=== PATIENT | male | born 1965 | race Caucasian/White ===

== ENCOUNTER 2018-09-22 11:02 | Emergency (ER) | payer SELFPAY ==
--- NOTE | 2018-09-22 12:20 | EKG REPORT ---
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
[2018-09-22 13:07] LABS: ABSOLUTE LYMPHOCYTES (AUTO) 1.6 10^3/uL (0.5-4.7); ABSOLUTE NEUT (AUTO) 7.1 10^3/uL (1.7-8.2); BASOPHILS % (AUTO) 0.4 % (0-2); EOSINOPHILS % (AUTO) 0.5 % (0-6); HEMOGLOBIN 19.2 g/dL (13.5-17.0); LYMPHOCYTES % (AUTO) 16.4 % (13-45); MEAN CORPUSCULAR HEMOGLOBIN 30.4 pg (27.0-33.4); MEAN CORPUSCULAR HGB CONC 33.5 g/dL (32.0-36.0); MEAN CORPUSCULAR VOLUME 91 fl (80-97); PLATELET COUNT 233 10^3/uL (150-450); RED BLOOD COUNT 6.31 10^6/uL (4.35-5.55); RED CELL DISTRIBUTION WIDTH 15.5 % (11.5-14.0); SEGMENTED NEUTROPHILS % (AUTO) 72.7 % (42-78); TOTAL CELLS COUNTED % (AUTO) 100 %; WHITE BLOOD COUNT 9.8 10^3/uL (4.0-10.5)
[2018-09-22 13:09] LABS: HEMATOCRIT 57.2 % (37.9-51.0)
[2018-09-22 13:22] LABS: ALANINE AMINOTRANSFERASE 15 U/L (21-72); ALBUMIN 3.7 g/dL (3.5-5.0); ALKALINE PHOSPHATASE 91 U/L (38-126); ANION GAP 7 (5-19); ASPARTATE AMINO TRANSFERASE 23 U/L (17-59); BILIRUBIN,DIRECT 0.4 mg/dL (0.0-0.4); BILIRUBIN,TOTAL 0.6 mg/dL (0.2-1.3); BLOOD UREA NITROGEN 13 mg/dL (7-20); C-REACTIVE PROTEIN 25.5 mg/L (<10.0); CALCIUM 9.3 mg/dL (8.4-10.2); CARBON DIOXIDE 33 mmol/L (22-30); CHLORIDE 100 mmol/L (98-107); CREATINE KINASE 29 U/L (55-170); GLUCOSE 109 mg/dL (75-110); POTASSIUM 4.7 mmol/L (3.6-5.0); SODIUM 139.5 mmol/L (137-145); TOTAL PROTEIN 7.6 g/dL (6.3-8.2)
[2018-09-22 13:31] LABS: TROPONIN I < 0.012 ng/mL
[2018-09-22 13:57] LABS: APPEARANCE,URINE CLEAR; BILIRUBIN,URINE NEGATIVE (NEGATIVE); COLOR,URINE YELLOW; GLUCOSE, URINE NEGATIVE (NEGATIVE); KETONES,URINE NEGATIVE (NEGATIVE); LEUKOCYTE ESTERASE,URINE NEGATIVE (NEGATIVE); NITRITE,URINE NEGATIVE (NEGATIVE); PROTEIN,URINE 100 mg/dL (NEGATIVE); URINE SPECIFIC GRAVITY 1.013
[2018-09-22 13:58] LABS: ERYTHROCYTE SEDIMENTATION RATE 13 mm/hr (0-20)
--- NOTE | 2018-09-22 15:30 | RADIOLOGY REPORT (SQ) ---
EXAM DESCRIPTION: CT LUMBAR SPINE WITHOUT COMPLETED DATE/TIME: 09/22/2018 3:19 pm REASON FOR STUDY: Lumbar back pain, unable to walk COMPARISON: None. TECHNIQUE: Axial images acquired through the lumbar spine without intravenous contrast. Images revi ewed with lung, soft tissue and bone windows. Reconstructed coronal and sagittal MPR images reviewed . All images stored on PACS. All CT scanners at this facility use dose modulation, iterative reconstruction, and/or weight based d osing when appropriate to reduce radiation dose to as low as reasonably achievable (ALARA). [facility]: Dose Right [facility]: CareDose [facility]: Dose Right [facility]: Teradose 4D [facility]: TM RADIATION DOSE: mGy. LIMITATIONS: None. FINDINGS: SEGMENTATION: Normal. No transitional anatomy. ALIGNMENT: Normal. VERTEBRAL BODIES: No fractures. No dislocation. No acute findings. DISCS: There is annular disc bulging at L4-L5 with mild central stenosis. There is bilateral foramin al narrowing. PEDICLES, TRANSVERSE PROCESSES: No fractures. No dislocation. No acute findings. FACETS, POSTERIOR ELEMENTS: No fractures. No dislocation. No spinal stenosis. HARDWARE: None in the spine. VISUALIZED RIBS: No fractures. SOFT TISSUES: No inflammatory changes. No focal fluid collections. OTHER: No other significant finding. IMPRESSION: Annular disc bulging at L4-L5 with central canal narrowing and bilateral foraminal steno sis. No acute findings in the lumbar spine. TECHNICAL DOCUMENTATION: JOB ID: [id number] Quality ID # [id number]: Final reports with documentation of one or more dose reduction techniques (e.g., Au tomated exposure control, adjustment of the mA and/or kV according to patient size, use of iterative reconstruction technique) 2010 [employer]- All Rights Reserved Reading location - IP/workstation name: [email or web address]
[2018-09-22] MEDS ORDERED: KETOROLAC TROMETHAMINE INJ/PF 30 MG/1 ML SDV IV ONE (16:03)
[2018-09-22] MEDS ORDERED: DOXYCYCLINE HYCLATE 100 MG TABLET PO ONE (16:11)
[2018-09-22 16:36] VITALS: BP 158/89
--- NOTE | 2018-09-26 08:53 | ER Document Report ---
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 Patient states approximately 3 days ago he had a "boil under the skin" that "popped" on its own. He states he proceeded to squeeze the boil to an excess and believes he popped the sac the cyst was in. He states the drainage from the sac traveled down into his lower back and is contributing to his pain. Patient states he had identical pain at the age of 22 and was admitted to the hospital where he had fluid drained from his knee and he was diagnosed with Ahsan's syndrome. He states the admission was subsequent to popping a ganglion cyst 3 days prior, fur ther stating he popped the cyst by slamming his wrist against a wall. He declines having an I&D. This 53-year-old male patient comes emergency room for severe pain in his low back preventing him to walk. He did ride his motor scooter to the emergency room, but had to call for help and a wheelchair to bring him in when he got to the parking lot. He did not have a backup plan in case he had to stop and get off his scooter on the way to the hospital. He reports the pain got severe this morning. He thinks it is related to a small abscess on his right flank region that he popped about 3 days ago. The patient states the primary problem is he has severe pain in his lumbar back when he tries to stand up, there is not an inability to stand and walk due to motor or sensory problems, it is just painful to do so. He is convinced that abscess is the source of his low back pain because when he was 22 years old, he slammed a ganglion cyst against the wall and ended up with a swollen knee that was diagnosed as Ahsan's syndrome. The patient is morbidly obese weighing approximately 400 pounds. He states he has lost 60 pounds in the last year by careful diet portion control. - Related Data Allergies/Adverse Reactions: No Known Allergies Allergy (Unverified 09/22/18 11:03) Past Medical History - General Information source: Patient - Social History Smoking Status: Current Every Day Smoker Cigarette use (# per day): Yes - 1 PPD Chew tobacco use (# tins/day): No Smoking Education Provided: No Family History: Reviewed & Not Pertinent Review of Systems - Review of Systems EENT: No symptoms reported Cardiovascular: No symptoms reported Respiratory: No symptoms reported Gastrointestinal: No symptoms reported Genitourinary: No symptoms reported Male Genitourinary: No symptoms reported Musculoskeletal: See HPI, Back pain Skin: See HPI Hematologic/Lymphatic: No symptoms reported Neurological/Psychological: No symptoms reported -: Yes All other systems reviewed and negative Physical Exam - Vital signs Vitals: Temp Pulse Resp BP Pulse Ox 98.7 F 88 26 H 175/91 H 86 L 09/22/18 11:20 09/22/18 11:20 09/22/18 11:20 09/22/18 11:20 09/22/18 11:20 - Notes Notes: GENERAL: Alert, interacts well. No acute distress. HEAD: Normocephalic, atraumatic. EYES: Pupils equal, round, and reactive to light. Extraocular movements intact. ENT: Oral mucosa moist, tongue midline. NECK: Full range of motion. Supple. Trachea midline. LUNGS: Clear to auscultation bilaterally, no wheezes, rales, or rhonchi. No respiratory distress. HEART: Regular rate and rhythm. No murmurs, gallops, or rubs. ABDOMEN: Soft, morbidly obese. Non-distended. Bowel sounds present in all 4 quadrants. EXTREMITIES: Moves all 4 extremities spontaneously. There is a palpable mass in the left anterior lateral ankle subcutaneous space. Patient reports this is a piece of metal that came off a log splitting wedge while he was splitting wood many years ago. BACK: There is some tenderness to palpate the mid lumbar spine region. NEUROLOGICAL: Alert and oriented x3. Normal speech. The patient has sensory intact to his lower extremities and normal motor function. PSYCH: Normal affect, normal mood. SKIN: Warm, dry. Right posterior lateral back, deep within skin folds, contains an abscess with 3 cm of surrounding induration and erythema. There is purulent discharge from the abscess. Course - Re-evaluation Re-evalutation: 09/22/18 15:58 This 53-year-old morbidly obese male patient has a subcutaneous abscess in the right lateral flank region which he declines incision and drainage. His lumbar back pain is related to weightbearing without radicular symptoms. He falls asleep while I am talking to him, his pulse oximeter reading is dropped off considerably when he is asleep. He does admit that people will get mad at him for falling asleep while they are talking to him. At the same time he states he could get in a big [employer] truck and drive all the way to [place] because he would be getting stimulated while driving. Several times told the patient that he needs to get a primary care provider, and deal with his sleep apnea and narcolepsy type symptoms. He also should start donating blood or have therapeutic phlebotomy due to his hemoglobin greater than 19. At this time I told the patient that muscle relaxers could be sedating and that would be dangerous for him. So with strong pain medication. I do believe he may benefit from having a walker to help him get around at this time. 09/22/18 16:51 I have advised the patient that it is not safe for him to be driving in his present condition, and that he should get a ride home. - Vital Signs Vital signs: Temp Pulse Resp BP Pulse Ox 98.7 F 88 27 H 158/89 H 94 09/22/18 11:20 09/22/18 11:20 09/22/18 16:00 09/22/18 15:01 09/22/18 16:00 - Laboratory Result Diagrams: 09/22/18 12:45 09/22/18 12:45 Laboratory results interpreted by me: 09/22/18 09/22/18 09/22/18 12:45 12:45 13:00 RBC 6.31 H Hgb 19.2 H Hct 57.2 H RDW 15.5 H Carbon Dioxide 33 H ALT 15 L Creatine Kinase 29 L C-Reactive Protein 25.5 H Urine Protein 100 H Urine Urobilinogen 2.0 H - Diagnostic Test Radiology reviewed: Image reviewed, Reports reviewed - CT scan of the lumbar spine shows annular disc bulging at L4-5 with mild central stenosis. There is bilateral foraminal narrowing. There are no inflammatory changes seen. There are no focal fluid collection seen. There is no spinal stenosis. 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 Most commonly the pain is due to straining of the muscles and ligaments in the low back. Usual treatment includes: (1) Rest on a firm surface. Avoid lying on your stomach. (2) Ice pack the painful area. After a few days, gentle heat may be used intermittently to relax the area, or ice packs can be continued. (3) Medication may be needed -- muscle relaxers and antiinflammatory medicines are commonly used. (4) As the back improves, exercises are prescribed to strengthen the back and abdominal muscles. Your doctor will advise you on the proper care for your back at each stage in your recovery. You may be better in a few days -- or healing may take several weeks. If new symptoms of a "herniated disc" (radiation of pain, numbness, or tingling down the back of the leg or weakness in the leg) occur, you should be re-examined. Further testing may be necessary. Abscess You have an abscess (boil). This a pus-forming infection, usually due to staph. Some boils may be left to drain on their own, but most require lancing. From the time the tender lump first appears, it may be three or four days before the abscess is ready to nishi. Local heat and rest help at this stage of treatment. An antibiotic may prevent spread of the infection. Once the abscess is opened, packing may be placed into it. This is done so pus is not sealed inside by premature closure of the cavity. The packing will be removed at your follow-up visit or you may be advised to remove it yourself at home. Sometimes this packing must be replaced a few times during healing. The wound will heal with surprisingly little scar. Depending on the size and location of an abscess, healing can take one to four weeks. You may shower and wash the area around the incision site two or three times a day. Antibiotics may be prescribed, but are usually not necessary after an abscess has been drained. If you develop fever, chilling, worsening pain, or increasing swelling in the area, call the doctor or return immediately. Your evaluation today does not show a clear explanation for your low back pain. Your evaluation does show several issues that are of concern: (1) polycythemia--an excessive number of red blood cells which can lead to slu dging and reduced blood flow through your small blood vessels. This could place you at risk for heart attack or stroke, as we discussed earlier. (2) narcolepsy--you fall asleep even while sitting up trying to talk to someone. (3) sleep apnea--your breathing frequently decreases and your oxygen levels fall dangerously low when you fall asleep. This is probably the reason you have the polycythemia, as we discussed earlier. (4) high blood pressure--you should see a local medical doctor and get started on treatment for your elevated blood pressure. (5) subcutaneous abscess in your right flank region--you decided you did not want this abscess incised and drained, so you will be provided with antibiotics. Start taking the antibiotic as prescribed. Take ibuprofen for your low back pain. Get the walker that is prescribed to help you get around if taking ibuprofen does not reduce your pain adequately. Follow-up with a local medical doctor on Tuesday or Tuesday to review all of the above listed concerns. RETURN TO THE EMERGENCY ROOM IF ANY NEW OR WORSENING SYMPTOMS. Prescriptions: Doxycycline Hyclate 100 mg PO BID #14 capsule Walker [Folding Walker] 1 each MC ASDIR PRN #1 each PRN Reason: Scribe Attestation: 09/22/18 14:03 I personally performed the services described in the documentation, reviewed and edited the documentation which was dictated to the scribe in my presence, and it accurately records my words and actions. I personally performed the services described in the documentation, reviewed and edited the documentation which was dictated to the scribe in my presence, and it accurately records my words and actions.
== END 2018-09-22 16:45 | disposition home or self-care (01) ==
LOC: ER 11:02
DX: M54.5 Low back pain (principal); D75.1 Secondary polycythemia; E66.01 Morbid (severe) obesity due to excess calories; L02.212 Cutaneous abscess of back [any part, except buttock and flank]; G47.429 Narcolepsy in conditions classified elsewhere without cataplexy; G47.30 Sleep apnea, unspecified; I10 Essential (primary) hypertension; M54.9 Dorsalgia, unspecified; G89.29 Other chronic pain; M02.30 Reiter's disease, unspecified site; F17.210 Nicotine dependence, cigarettes, uncomplicated
CPT/HCPCS: 93005; 99284; 96374; 36415; 87040; 87070; 87205; 82553; 82550; 85025; 85652; 87075; 86140; 87077; 80053; 81001; 84484; 83605; 72131; 93010; J1885

== ENCOUNTER 2018-10-10 11:01 | Emergency (ER) | payer OTHER ==
[2018-10-10] MEDS ORDERED: ONDANSETRON HCL INJ/PF 4 MG/2 ML SDV IV ONE (12:13)
[2018-10-10] MEDS ORDERED: MORPHINE SULFATE 10 MG/ML INJ IV ONE (12:13)
--- NOTE | 2018-10-10 12:13 | ER Document Report ---
ED Medical Screen (RME) - General Chief Complaint: Abnormal Lab Results Stated Complaint: BACK PAIN Time Seen by Provider: 10/10/18 12:05 [facility]] - Follow up as needed Mode of Arrival: Wheelchair Information source: Patient, Dr. Office Notes: 53-year-old male presents after blood work this morning showed a potassium of 6.0. Patient is under the care of community care in clinic. He does report an increase in potassium intake and states that he eats bananas and avocados regularly. Patient has no other physical complaints except for back pain for which she was seen for earlier this month. I have greeted and performed a rapid initial assessment of this patient. A comprehensive ED assessment and evaluation of the patient, analysis of test results and completion of medical decision making process we will be contacted by additional ED providers. PHYSICAL EXAMINATION: Vital signs reviewed GENERAL: Well-appearing, well-nourished and in no acute distress. LUNGS: No respiratory distress Musculoskeletal: Normal range of motion NEUROLOGICAL: Normal speech, normal gait. PSYCH: Normal mood, normal affect. SKIN: Warm, Dry, normal turgor, no rashes or lesions noted. TRAVEL OUTSIDE OF THE [place] IN LAST 30 DAYS: No - HPI Onset: This morning Quality of pain: Throbbing Severity: Moderate Associated Symptoms: Body/muscle aches, Cough (nonproductive). denies: Diarrhea, Headache, Nausea, Shortness of breath Exacerbated by: Movement Relieved by: Denies Similar symptoms previously: Yes Recently seen / treated by doctor: Yes - Related Data Smoking: Cigarettes Frequency of alcohol use: None Drug Abuse: None Allergies/Adverse Reactions: No Known Allergies Allergy (Unverified 09/22/18 11:03) Past Medical History - Social History Chew tobacco use (# tins/day): No Frequency of alcohol use: None Drug Abuse: None Renal/ Medical History: Denies: Hx Peritoneal Dialysis Physical Exam - Vital signs Vitals: Temp Pulse Resp BP Pulse Ox 98.3 F 102 H 20 152/93 H 97 10/10/18 11:31 10/10/18 11:31 10/10/18 11:31 10/10/18 11:31 10/10/18 11:31 Course - Vital Signs Vital signs: Temp Pulse Resp BP Pulse Ox 98.3 F 102 H 20 152/93 H 97 10/10/18 11:31 10/10/18 11:31 10/10/18 11:31 10/10/18 11:31 10/10/18 11:31 Doctor's Discharge - Discharge Referrals: [facility] [Primary Care Provider] - Follow up as needed
--- NOTE | 2018-10-10 13:04 | EKG REPORT ---
SEVERITY:- ABNORMAL ECG - SINUS TACHYCARDIA PROBABLE LEFT ATRIAL ABNORMALITY RIGHT BUNDLE BRANCH BLOCK AND LAFB. ANTEROLATERAL INFARCT, AGE UNDETERMINED. : Confirmed by: Cabrera Pastrana MD 10-Oct-2018 13:03:41
[2018-10-10 13:13] LABS: MEAN CORPUSCULAR HEMOGLOBIN 30.5 pg (27.0-33.4); MEAN CORPUSCULAR HGB CONC 33.6 g/dL (32.0-36.0); MEAN CORPUSCULAR VOLUME 91 fl (80-97); PLATELET COUNT 258 10^3/uL (150-450); WHITE BLOOD COUNT 11.4 10^3/uL (4.0-10.5)
[2018-10-10 13:31] LABS: ALANINE AMINOTRANSFERASE 35 U/L (21-72); ALBUMIN 4.1 g/dL (3.5-5.0); ALKALINE PHOSPHATASE 100 U/L (38-126); ANION GAP 6 (5-19); ASPARTATE AMINO TRANSFERASE 27 U/L (17-59); BILIRUBIN,DIRECT 0.2 mg/dL (0.0-0.4); BILIRUBIN,TOTAL 0.6 mg/dL (0.2-1.3); BLOOD UREA NITROGEN 20 mg/dL (7-20); CALCIUM 10.1 mg/dL (8.4-10.2); CARBON DIOXIDE 34 mmol/L (22-30); CHLORIDE 99 mmol/L (98-107); GLUCOSE 108 mg/dL (75-110); POTASSIUM 5.1 mmol/L (3.6-5.0); TOTAL PROTEIN 8.1 g/dL (6.3-8.2)
[2018-10-10] MEDS ORDERED: NORMAL SALINE 1000 ML 1,000 ML IV ONE ×2 (13:36→16:03)
[2018-10-10 13:38] LABS: HEMATOCRIT 61.6 % (37.9-51.0); HEMOGLOBIN 20.7 g/dL (13.5-17.0)
[2018-10-10 13:51] LABS: ABSOLUTE LYMPHOCYTES# (MANUAL) 1.8 10^3/uL (0.5-4.7); ABSOLUTE MONOCYTES # (MANUAL) 0.9 10^3/uL (0.1-1.4); ABSOLUTE NEUTROPHILS# (MANUAL) 8.4 10^3/uL (1.7-8.2); BASOPHILS % (MANUAL) 0 % (0-2); EOSINOPHILS % (MANUAL) 2 % (0-6); LYMPHOCYTES % (MANUAL) 16 % (13-45); MONOCYTES % (MANUAL) 8 % (3-13); SEGMENTED NEUTROPHILS % (MAN) 74 % (42-78); TOTAL CELLS COUNTED 100
[2018-10-10 13:52] LABS: ANISOCYTOSIS SLIGHT; PLATELET COMMENT ADEQUATE
[2018-10-10] MEDS ORDERED: DEXAMETHASONE SOD PHOS INJ 10 MG/1 ML VIAL IV ONE (16:03)
--- NOTE | 2018-10-10 16:48 | RADIOLOGY REPORT (SQ) ---
EXAM DESCRIPTION: CHEST 2 VIEWS COMPLETED DATE/TIME: 10/10/2018 4:38 pm REASON FOR STUDY: intermittent hypoxia COMPARISON: None. EXAM PARAMETERS: NUMBER OF VIEWS: two views TECHNIQUE: Digital Frontal and Lateral radiographic views of the chest acquired. RADIATION DOSE: NA LIMITATIONS: none FINDINGS: LUNGS AND PLEURA: No opacities, masses or pneumothorax. No pleural effusion. MEDIASTINUM AND HILAR STRUCTURES: No masses or contour abnormalities. HEART AND VASCULAR STRUCTURES: Heart normal size. No evidence for failure. BONES: No acute findings. HARDWARE: None in the chest. OTHER: No other significant finding. IMPRESSION: NO ACUTE RADIOGRAPHIC FINDING IN THE CHEST. TECHNICAL DOCUMENTATION: JOB ID: [id number] [employer]- All Rights Reserved Reading location - IP/workstation name: [email or web address]
[2018-10-10 18:08] VITALS: BP 123/77
--- NOTE | 2018-10-10 18:15 | ER Document Report ---
ED General - General Chief Complaint: Abnormal Lab Results Stated Complaint: BACK PAIN Time Seen by Provider: 10/10/18 12:05 Primary Care Provider: SAMI GOMEZ [NO LOCAL MD] - Follow up as needed Mode of Arrival: Wheelchair TRAVEL OUTSIDE OF THE [place] IN LAST 30 DAYS: No - HPI Notes: Patient presents to the emergency department for evaluation of the best of his physician. Evidently he had routine labs done today and was told his potassium was high. The patient states he eats a lot of potassium containing foods. He states he is primarily concerned because of his back pain. He has back pain that radiates down his right leg. He denies any bowel or bladder incontinence. No saddle anesthesia. No focal numbness or weakness. He reports his pain at a 10 out of 10 and states it is "unbearable." - Related Data Allergies/Adverse Reactions: No Known Allergies Allergy (Unverified 09/22/18 11:03) Past Medical History - General Information source: Patient, Office - Social History Smoking Status: Current Every Day Smoker Chew tobacco use (# tins/day): No Frequency of alcohol use: None Drug Abuse: None Family History: Reviewed & Not Pertinent Patient has suicidal ideation: No Patient has homicidal ideation: No Renal/ Medical History: Denies: Hx Peritoneal Dialysis Review of Systems - Review of Systems Constitutional: No symptoms reported EENT: No symptoms reported Cardiovascular: No symptoms reported Respiratory: No symptoms reported Gastrointestinal: No symptoms reported Musculoskeletal: See HPI Skin: No symptoms reported Neurological/Psychological: No symptoms reported Physical Exam - Vital signs Vitals: Temp Pulse Resp BP Pulse Ox 98.3 F 102 H 20 152/93 H 97 10/10/18 11:31 10/10/18 11:31 10/10/18 11:31 10/10/18 11:31 10/10/18 11:31 - Notes Notes: Patient is morbidly obese. No apparent distress. Lying left lateral recumbent position. Vital signs reviewed, please refer to chart. Patient is normocephalic, atraumatic. Pupils equal round, reactive to light. Neck is supple without meningismus. Heart is regular rate and rhythm. Lungs are clear to auscultation bilaterally. Abdomen is soft, nontender, normoactive bowel sounds throughout. Extremities without cyanosis, clubbing. Peripheral pulses are equal. Skin is warm and dry. Patient is awake, alert, neurological exam is nonfocal. In addition the spine is no midline tenderness or step-off. There is paraspinal musculature tenderness throughout the lumbar spine. Unable to perform strength testing of bilateral lower extremity secondary to pain but sensation is intact. Patellar and Achilles reflexes are mildly diminished but symmetrical. Course - Re-evaluation Re-evalutation: 10/10/18 18:09 Patient presents to the emergency department for evaluation. He was originally sent because he was hyperkalemic. His laboratory investigations revealed a recheck potassium of only 5.1. I do not believe any further inventions were indicated beyond IV fluids. His hemoglobin is high as well. During the course of his stay did become intermittently hypoxic. This is when he was nearly asleep. I discussed this with the patient. He denies any lung disease but he has an extensive smoking history. He is also morbidly obese. He states he has a sleep study ordered in 2 weeks. We discussed the risks associated with obstructive sleep apnea and he voiced understanding to this. He was treated here with pain medication and Decadron. I will sentiment with steroids for his back pain. He has an appointment with the doctor tomorrow. He is to return to the emergency department with worsening or new concerning symptoms of any sort. - Vital Signs Vital signs: Temp Pulse Resp BP Pulse Ox 98.3 F 102 H 10 L 139/74 H 88 L 10/10/18 11:31 10/10/18 11:31 10/10/18 16:01 10/10/18 16:01 10/10/18 16:01 - Laboratory Result Diagrams: 10/10/18 12:45 10/10/18 12:45 Laboratory results interpreted by me: 10/10/18 10/10/18 12:45 12:45 WBC 11.4 H RBC 6.80 H Hgb 20.7 H* Hct 61.6 H* RDW 15.0 H Abs Neuts (Manual) 8.4 H Potassium 5.1 H Carbon Dioxide 34 H Discharge - Discharge Clinical Impression: Hyperkalemia, Low back pain Instructions: Low Back Pain ([facility]) Additional Instructions: Follow-up with your doctor tomorrow as discussed. Avoid high potassium foods. You need to be further evaluated for obstructive sleep apnea with a sleep study as soon as possible. Take all of the prednisone as directed until gone. Return to the emergency department with worsening or new concerning symptoms of any sort. Forms: Smoking Cessation Education Referrals: [facility] [NO LOCAL MD] - Follow up as needed
[2018-10-11 10:31] LABS: PATH REVIEW PATHOLOGIST REVIEWED
== END 2018-10-10 18:42 | disposition home or self-care (01) ==
LOC: ER 11:01
DX: E87.5 Hyperkalemia (principal); M54.5 Low back pain; F17.200 Nicotine dependence, unspecified, uncomplicated
CPT/HCPCS: 93005; 99285; 36415; 85025; 80053; 71046; 93010; J2270; J2405; J7030; J1100

== ENCOUNTER → 2018-10-10 | Outpatient (CLI) | payer OTHER ==
[2018-10-10 08:27] LABS: ABSOLUTE BASOPHILS # (AUTO) 0.1 10^3/uL (0.0-0.2); ABSOLUTE EOSINOPHILS # (AUTO) 0.1 10^3/uL (0.0-0.6); ABSOLUTE LYMPHOCYTES (AUTO) 2.2 10^3/uL (0.5-4.7); ABSOLUTE MONOCYTES (AUTO) 0.9 10^3/uL (0.1-1.4); BASOPHILS % (AUTO) 0.8 % (0-2); EOSINOPHILS % (AUTO) 1.2 % (0-6); LYMPHOCYTES % (AUTO) 19.7 % (13-45); MEAN CORPUSCULAR HGB CONC 33.4 g/dL (32.0-36.0); MEAN CORPUSCULAR VOLUME 90 fl (80-97); MONOCYTES % (AUTO) 7.6 % (3-13); PLATELET COUNT 266 10^3/uL (150-450); SEGMENTED NEUTROPHILS % (AUTO) 70.7 % (42-78); TOTAL CELLS COUNTED % (AUTO) 100 %; WHITE BLOOD COUNT 11.3 10^3/uL (4.0-10.5)
[2018-10-10 08:46] LABS: ALANINE AMINOTRANSFERASE 26 U/L (21-72); ALBUMIN 4.1 g/dL (3.5-5.0); ALKALINE PHOSPHATASE 100 U/L (38-126); ANION GAP 9 (5-19); ASPARTATE AMINO TRANSFERASE 25 U/L (17-59); BILIRUBIN,DIRECT 0.4 mg/dL (0.0-0.4); BILIRUBIN,TOTAL 0.7 mg/dL (0.2-1.3); BLOOD UREA NITROGEN 19 mg/dL (7-20); CALCIUM 9.7 mg/dL (8.4-10.2); CARBON DIOXIDE 33 mmol/L (22-30); CHLORIDE 98 mmol/L (98-107); CHOLESTEROL 271.96 mg/dL (0-200); GLUCOSE 101 mg/dL (75-110); SODIUM 139.9 mmol/L (137-145); TOTAL PROTEIN 8.2 g/dL (6.3-8.2); TRIGLYCERIDES 233 mg/dL (<150)
[2018-10-10 08:52] LABS: RED BLOOD COUNT 7.07 10^6/uL (4.35-5.55)
[2018-10-10 08:57] LABS: DIRECT LDL 190 mg/dL (<100); VLDL CHOLESTEROL 46.6 mg/dL (10-31)
[2018-10-10 09:01] LABS: HEMOGLOBIN 21.2 g/dL (13.5-17.0)
[2018-10-10 09:02] LABS: HEMATOCRIT 63.5 % (37.9-51.0)
== END ==
LOC: OD 07:48
DX: Z00.00 Encounter for general adult medical examination without abnormal findings (principal)
CPT/HCPCS: 36415; 80053; 80061; 83036; 85025

== ENCOUNTER 2019-01-23 09:32 | Day surgery (SDC) | payer OTHER ==
[2019-01-17 11:27] LABS: HEMATOCRIT 54.8 % (37.9-51.0); HEMOGLOBIN 18.5 g/dL (13.5-17.0); MEAN CORPUSCULAR HEMOGLOBIN 31.1 pg (27.0-33.4); MEAN CORPUSCULAR HGB CONC 33.7 g/dL (32.0-36.0); MEAN CORPUSCULAR VOLUME 92 fl (80-97); PLATELET COUNT 232 10^3/uL (150-450); RED BLOOD COUNT 5.95 10^6/uL (4.35-5.55); RED CELL DISTRIBUTION WIDTH 15.9 % (11.5-14.0); WHITE BLOOD COUNT 11.7 10^3/uL (4.0-10.5)
[2019-01-17 11:53] LABS: ANION GAP 9 (5-19); BLOOD UREA NITROGEN 14 mg/dL (7-20); CALCIUM 9.6 mg/dL (8.4-10.2); CARBON DIOXIDE 32 mmol/L (22-30); CHLORIDE 99 mmol/L (98-107); GLUCOSE 104 mg/dL (75-110); POTASSIUM 5.2 mmol/L (3.6-5.0); SODIUM 140.4 mmol/L (137-145)
--- NOTE | 2019-01-17 22:13 | EKG REPORT ---
SEVERITY:- ABNORMAL ECG - SINUS RHYTHM RBBB AND LAFB : Confirmed by: Martha Alves MD 17-Jan-2019 22:12:23
[~2019-01-23 09:32] MED LIST: BUPIVACAINE HCL 0.25 % INJ/PF (2.5 MG/1 ML) 30 ML VIAL ONE; CEFAZOLIN 1 GM/D5W RTU 1 GM/50 ML RTUPB IV ONE; CEFAZOLIN 1 GM/D5W RTU 1 GM/50 ML RTUPB IV PRN; LACTATED RINGERS 1000 ML IV PRN; LIDOCAINE 0.5% INJ-PF (5 MG/ML) 50 ML SDV ONE; LIDOCAINE 0.5% INJ-PF (5 MG/ML) 50 ML SDV SUBCUT PRN
[2019-01-23] MEDS ORDERED: SILVER SULFADIAZINE 1% CREAM 25 GM ONE (09:43)
[2019-01-23] MEDS ORDERED: BACITRACIN INJ 50,000 UNIT VIAL ONE (09:44)
[2019-01-23] MEDS ORDERED: COLLAGENASE CLOSTRIDIUM HIST. OINT 30 GM ONE (09:44)
[2019-01-23] MEDS ORDERED: MIDAZOLAM 2 MG/2 ML INJ ONE ×2 (10:39→11:23)
[2019-01-23] MEDS ORDERED: FENTANYL CITRATE INJ/PF 100 MCG/2 ML AMPUL ONE (11:23)
[2019-01-23] MEDS ORDERED: ONDANSETRON HCL INJ/PF 4 MG/2 ML SDV ONE (11:23)
[2019-01-23] MEDS ORDERED: PROPOFOL INJ 200 MG/20 ML VIAL IV ONE (11:24)
--- NOTE | 2019-01-23 13:26 | Discharge Summary ---
Discharge Summary (SDC) - Discharge Final Diagnosis: Multiple subcutaneous masses. probable sleep apnea Morbid obesity Date of Surgery: 01/23/19 Discharge Date: 01/23/19 Condition: Fair Treatment or Instructions: Discharge home [after recovery per ASU criteria]. Diet , as tolerated, when fully awake advance as tolerated. Activities within moderation encouraged. Follow up in my office by appointment in about [1 week]. Call for appointment. Leave wounds [covered], [keep clean and dry, until office visit in 1 week]. Hold of on school/work [until evaluation in office]. Meds per med rec.Keflex. May shower [in 48 hrs], [try to keep operated area as dry as possible]. Prescriptions: Cephalexin Monohydrate [Keflex 500 mg Capsule] 500 mg PO QID #20 capsule Referrals: RUT WYNN MD [Primary Care Provider] - Respiratory Treatments at Home: Deep Breathing/Coughing Discharge Activity: Activity As Tolerated Report the Following to Your Physician Immediately: Shortness of Breath
--- NOTE | 2019-01-23 13:35 | Operative Report ---
Operative Report DATE OF SURGERY: 01/23/19 PREOPERATIVE DIAGNOSIS: Multiple subcutaneous masses. probable sleep apnea. M orbid obesity POSTOPERATIVE DIAGNOSIS: Multiple subcutaneous masses. probable sleep apnea. Morbid obesity OPERATION: Excision of multiple subcutaneous masses. SURGEON: MAGDALENO VAZQUEZ DRUG ROOM OPERATOR: None. ANESTHESIA: LMAC TISSUE REMOVED OR ALTERED: Subcutaneous mass left anterior lateral. Mass of the right flank area. Mass of right upper medial thigh. COMPLICATIONS: None. ESTIMATED BLOOD LOSS: 20 mL. INTRAOPERATIVE FINDINGS: Of 3 subcutaneous masses. 1. 1 cm across, encapsulated in the subcutaneous tissues superiorly lateral left ankle region. May be foreign body. 2. Horizontally situated, elongated subcutaneous mass about 5 x 1.5 cm across, right flank. 3.Horizontally situated, elongated subcutaneous mass about 8 x 2 cm across, right upper medial thigh. PROCEDURE: PROCEDURE: The [left foot, and ankle] were prepared with [Betadine] and draped out with sterile linen. After the"universal time-out", in which it was confirmed that the patient [did receive antibiotic], the procedure commenced. The patient was appropriately anesthetized. Using local anesthesia. The wound was marked. A slightly oval incision made about 3 cm in length over the mass. Dissection proceeded sharply and bluntly staying immediately adjacent to the somewhat rounded mass which was situated in the subcutaneous tissues, immediately beneath the skin. Care was taken not to engage adjacent structures. The mass was thus excised in entirety and submitted for pathology. The wound was now closed with interrupted 3-0 PDS vertical mattress sutures. Dressed with sterile dressing and the procedure concluded. The right flank was prepared with [Betadine] and draped out with sterile linen. After the"universal time-out", in which it was confirmed that the patient [did receive antibiotic], the procedure commenced. The patient was appropriately anesthetized. Using local anesthesia. The wound was marked. A slightly oval incision made about 8 cm in length over the mass, excising the oval portion of skin attached to the underlying mass.. Dissection proceeded sharply and bluntly staying adjacent to the somewhat elongated mass which was situated in the subcutaneous tissues, immediately beneath the skin. And which tapered over the either end. The mass was thus excised in entirety and submitted for pathology. The wound was now closed with interrupted 3-0 PDS vertical mattress sutures. Dressed with sterile dressing and the procedure concluded. The right medial thigh was prepared with [Betadine] and draped out with sterile linen. After the"universal time-out", in which it was confirmed that the patient [did receive antibiotic], the procedure commenced. The patient was appropriately anesthetized. Using local anesthesia. The wound was marked. A slightly oval incision made about 8 cm in length over the mass, excising the oval portion of skin attached to the underlying mass.. Dissection proceeded sharply and bluntly staying adjacent to the somewhat elongated mass which was situated in the subcutaneous tissues, beneath the skin. And which tapered over the either end. The mass was thus excised in entirety and submitted for pathology. The wound was now closed with interrupted 3-0 PDS vertical mattress sutures. Dressed with sterile dressing and the procedure concluded.
[2019-01-23] MEDS ORDERED: TRAMADOL HCL 50 MG TABLET ONE (14:13)
[2019-01-23 18:24] VITALS: BP 134/58
== END 2019-01-23 17:50 | disposition home or self-care (01) ==
LOC: OROUT 09:32
PROVIDERS: ATTEND Surgery
DX: L72.8 Other follicular cysts of the skin and subcutaneous tissue (principal); E66.01 Morbid (severe) obesity due to excess calories; F17.210 Nicotine dependence, cigarettes, uncomplicated; Z68.43 Body mass index [BMI] 50.0-59.9, adult; Z01.818 Encounter for other preprocedural examination
CPT/HCPCS: 93005; 36415 ×2; 87070; 87205; 84132; 85027; 87075; 87077; 80048; 88304 ×2; 93010; 00300; 11406; J2250; J3490 ×2; J0690; J3010; J2405; J2704; 300; 88305

== ENCOUNTER 2019-04-09 07:23 | Emergency (ER) | payer MEDICAID, OTHER ==
[2019-04-09 08:05] LABS: ABSOLUTE BASOPHILS # (AUTO) 0.1 10^3/uL (0.0-0.2); ABSOLUTE LYMPHOCYTES (AUTO) 1.7 10^3/uL (0.5-4.7); ABSOLUTE MONOCYTES (AUTO) 1.3 10^3/uL (0.1-1.4); BASOPHILS % (AUTO) 0.7 % (0-2); EOSINOPHILS % (AUTO) 0.2 % (0-6); HEMATOCRIT 49.2 % (37.9-51.0); HEMOGLOBIN 16.8 g/dL (13.5-17.0); MEAN CORPUSCULAR HEMOGLOBIN 30.5 pg (27.0-33.4); MEAN CORPUSCULAR HGB CONC 34.1 g/dL (32.0-36.0); MEAN CORPUSCULAR VOLUME 89 fl (80-97); MONOCYTES % (AUTO) 8.4 % (3-13); PLATELET COUNT 270 10^3/uL (150-450); RED CELL DISTRIBUTION WIDTH 13.7 % (11.5-14.0); SEGMENTED NEUTROPHILS % (AUTO) 79.7 % (42-78); TOTAL CELLS COUNTED % (AUTO) 100 %
[2019-04-09 08:20] LABS: ALBUMIN 3.9 g/dL (3.5-5.0); ALKALINE PHOSPHATASE 97 U/L (38-126); ANION GAP 7 (5-19); ASPARTATE AMINO TRANSFERASE 41 U/L (17-59); BILIRUBIN,DIRECT 0.4 mg/dL (0.0-0.4); BILIRUBIN,TOTAL 0.8 mg/dL (0.2-1.3); BLOOD UREA NITROGEN 12 mg/dL (7-20); CALCIUM 9.3 mg/dL (8.4-10.2); CARBON DIOXIDE 30 mmol/L (22-30); CHLORIDE 101 mmol/L (98-107); CREATINE KINASE 45 U/L (55-170); GLUCOSE 129 mg/dL (75-110); POTASSIUM 4.1 mmol/L (3.6-5.0); TOTAL PROTEIN 7.9 g/dL (6.3-8.2)
[2019-04-09] MEDS ORDERED: DILTIAZEM HCL INJ 25 MG/5 ML VIAL IV ONE ×3 (08:20→10:30)
[2019-04-09] MEDS ORDERED: DILTIAZEM HCL/D5W 125 MG/125 ML RTUINJ IV PRN (08:20)
--- NOTE | 2019-04-09 08:23 | ER Document Report ---
ED Respiratory Problem - General Chief Complaint: Shortness Of Breath Stated Complaint: SHORTNESS OF BREATH Time Seen by Provider: 04/09/19 08:02 Mode of Arrival: Ambulatory Information source: [facility], [facility] Records Notes: This 54-year-old male patient comes emergency room complaining of shortness of breath for the past 4 to 5 days. He reports that it comes and goes, but has been getting progressively worse. He initially thought it was anxiety due to having stopped smoking 3 months ago. There is no chest pain. At triage she is found to be in atrial flutter with a heart rate of 163. This patient was seen here in early September of this year for an abscess on his back, at that time he is found to be hypertensive, polycythemic, narcoleptic with obstructive sleep apnea. TRAVEL OUTSIDE OF THE [place] IN LAST 30 DAYS: No - Related Data Allergies/Adverse Reactions: No Known Allergies Allergy (Unverified 01/17/19 09:58) Past Medical History - General Information source: [facility], [facility] Records - Social History Smoking Status: Former Smoker - Patient quit 3 months ago. 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 Past Surgical History: Reports: Hx Orthopedic Surgery - back - Immunizations Hx Diphtheria, Pertussis, Tetanus Vaccination: No Review of Systems - Review of Systems Constitutional: No symptoms reported EENT: No symptoms reported Cardiovascular: No symptoms reported Respiratory: Short of breath Gastrointestinal: No symptoms reported Genitourinary: No symptoms reported Musculoskeletal: Back pain Skin: No symptoms reported Hematologic/Lymphatic: No symptoms reported Neurological/Psychological: No symptoms reported Physical Exam - Vital signs Vitals: Temp Pulse Resp BP Pulse Ox 99.5 F 164 H 24 H 156/110 H 92 04/09/19 07:32 04/09/19 07:32 04/09/19 07:32 04/09/19 07:32 04/09/19 07:32 Interpretation: Hypertensive, Tachycardic - General General appearance: Appears well, Alert In distress: Mild - HEENT Head: Normocephalic, Atraumatic Eyes: Normal Pupils: PERRL Neck: Normal - Respiratory Respiratory status: Tachypnea Breath sounds: Normal - Cardiovascular Rhythm: Regular, Tachycardia Heart sounds: Normal auscultation Murmur: No - Abdominal Inspection: Morbidly Obese Bowel sounds: Normal Tenderness: Nontender - Back Back: Tender - Extremities General upper extremity: Normal inspection General lower extremity: Edema - Neurological Neuro grossly intact: Yes - Psychological Associated symptoms: Normal affect, Normal mood - Skin Skin Temperature: Warm Skin Moisture: Dry Skin Color: Normal Course - Re-evaluation Re-evalutation: 04/09/19 11:09 CTA chest is negative. The patient's rate is not responding to higher dosing of the Cardizem bolus and drip. We will switch to esmolol. 04/09/19 13:00 The esmolol drip caused the patient's pulse to acutely drop from 156-80. He became anxious and a little diaphoretic. Esmolol was stopped briefly and his pulse came back up his pressure came back up and now he is sitting up resting comfortably. 04/09/19 14:16 I discussed the case with the hospitalist and the superintendent sanitation. Initially Dr. Alford accepted the patient, but then he later came back and told me I needed to transfer the patient after he and Dr. Alves decided that he should be transferred for a ROMANA and evaluation by an EP doctor. Given his elevated d- dimer, his normal CTA chest, and difficulty in trying to control his rate this is a reasonable request. Initially they were going to give him digoxin but then decided against that. I discussed amiodarone with the superintendent sanitation, he recommended I wait and speak with the EP doctor in [place] and see what they recommended. 04/09/19 14:49 Discussed the case with cardiology at [place], and then the patient was accepted by Dr. Servin the associate professor of pathology. - Vital Signs Vital signs: Temp Pulse Resp BP Pulse Ox 98 F 122 H 27 H 117/88 H 96 04/09/19 12:47 04/09/19 14:25 04/09/19 15:34 04/09/19 15:34 04/09/19 15:34 - Laboratory Result Diagrams: 04/09/19 07:50 04/09/19 07:50 Laboratory results interpreted by me: 04/09/19 04/09/19 04/09/19 07:50 07:50 07:50 WBC 15.0 H Seg Neutrophils % 79.7 H Lymphocytes % 11.0 L Absolute Neutrophils 12.0 H D-Dimer Glucose 129 H Creatine Kinase 45 L NT-Pro-B Natriuret Pep 2560 H Urine Protein 04/09/19 04/09/19 04/09/19 07:50 08:42 11:35 WBC Seg Neutrophils % Lymphocytes % Absolute Neutrophils D-Dimer 1.30 H Glucose Creatine Kinase 41 L NT-Pro-B Natriuret Pep Urine Protein >=500 H - Diagnostic Test Radiology reviewed: Image reviewed, Reports reviewed - Cardiomegaly without abnormality in the lungs. CTA chest does not show any gross abnormalities, specifically no pulmonary emboli. - EKG Interpretation by Al EKG shows normal: [place], Intervals, QRS Complexes, ST-T Waves Rate: Tachycardia - 163 Rhythm: A.Flutter [place]/QRS: RBBB When compared to previous EKG there are: Changes noted - Consults Dr. Alford Time consulted: 13:05 Consulted provider: will come to ER - Transfer of Care Care transferred to following provider: Dr. Candelario Notes: 04/09/19 15:45 Pt was started on an amiodarone bolus and drip. Pending transfer to [facility]. Critical Care Note - Critical Care Note Total time excluding time spent on procedures (mins): 60 Discharge - Discharge Clinical Impression: Atrial flutter with rapid ventricular response, Elevated troponin, Morbid obesity Dyspnea Qualifiers: Dyspnea type: unspecified Qualified Code(s): R06.00 - Dyspnea, unspecified High blood pressure Qualifiers: Hypertension type: essential hypertension Qualified Code(s): I10 - Essential (primary) hypertension Condition: Stable Disposition: [facility]
[2019-04-09 08:29] LABS: INTERNATIONAL RATION (INR) 0.96; PROTHROMBIN TIME 12.8 SEC (11.4-15.4)
[2019-04-09 08:32] LABS: CREATINE KINASE MB 1.81 ng/mL (<4.55)
[2019-04-09 08:35] LABS: TROPONIN I 0.238 ng/mL
[2019-04-09 08:51] LABS: APPEARANCE,URINE CLEAR; BILIRUBIN,URINE NEGATIVE (NEGATIVE); COLOR,URINE YELLOW; GLUCOSE, URINE NEGATIVE (NEGATIVE); KETONES,URINE NEGATIVE (NEGATIVE); LEUKOCYTE ESTERASE,URINE NEGATIVE (NEGATIVE); NITRITE,URINE NEGATIVE (NEGATIVE); PROTEIN,URINE >=500 mg/dL (NEGATIVE); URINE SPECIFIC GRAVITY 1.017; UROBILINOGEN,URINE NEGATIVE mg/dL (<2.0)
[2019-04-09] MEDS ORDERED: NORMAL SALINE 1000 ML 250 ML IV ONE (09:01)
--- NOTE | 2019-04-09 09:09 | RADIOLOGY REPORT (SQ) ---
EXAM DESCRIPTION: CHEST SINGLE VIEW COMPLETED DATE/TIME: 04/09/2019 8:43 am REASON FOR STUDY: Short of breath, atrial flutter, heart rate 163 COMPARISON: 10/10/2018 EXAM PARAMETERS: NUMBER OF VIEWS: One view. TECHNIQUE: Single frontal radiographic view of the chest acquired. RADIATION DOSE: NA LIMITATIONS: None. FINDINGS: LUNGS AND PLEURA: No opacities, masses or pneumothorax. No pleural effusion. MEDIASTINUM AND HILAR STRUCTURES: No masses. Contour normal. HEART AND VASCULAR STRUCTURES: Cardiomegaly. BONES: No acute findings. HARDWARE: None in the chest. OTHER: No other significant finding. IMPRESSION: Cardiomegaly without acute abnormality of the lungs in AP projection. TECHNICAL DOCUMENTATION: JOB ID: [id number] [employer]- All Rights Reserved Reading location - IP/workstation name: [email or web address]
--- NOTE | 2019-04-09 11:03 | RADIOLOGY REPORT (SQ) ---
EXAM DESCRIPTION: CTA CHEST COMPLETED DATE/TIME: 04/09/2019 10:46 am REASON FOR STUDY: Elevated dimer, dyspnea, atrial flutter with RVR COMPARISON: None. TECHNIQUE: CT scan of the chest performed using helical scanning technique with dynamic intravenous contrast injection. Images reviewed with lung, soft tissue and bone windows. Reconstructed coronal and sagittal MPR images reviewed. Additional 3 dimensional post-processing performed to develop Maximal Intensity Projection images (PR P). All images stored on PACS. All CT scanners at this facility use dose modulation, iterative reconstruction, and/or weight based d osing when appropriate to reduce radiation dose to as low as reasonably achievable (ALARA). [facility]: Dose Right [facility]: CareDose [facility]: Dose Right [facility]: Teradose 4D [facility]: [employer] CONTRAST TYPE AND DOSE: contrast/concentration: Isovue 350.00 mg/ml; Total Contrast Delivered: 68.0 ml; Total Saline Delivered: 50.0 ml Contrast bolus optimized for the pulmonary arteries. Not diagnostic for the aorta. RENAL FUNCTION: BUN 12 creatinine 0.71 RADIATION DOSE: CT Rad equipment meets quality standard of care and radiation dose reduction techniq ues were employed. CTDIvol: 4.7 - 23.5 mGy. DLP: 659 mGy-cm. . LIMITATIONS: Sub optimal opacification of the pulmonary arteries. Pulsation artifact. FINDINGS: LUNGS AND PLEURA: No masses, infiltrates, or pneumothorax. No pleural effusions or pleura l calcifications. AORTA AND GREAT VESSELS: No aneurysm. Contrast bolus not optimized for the aorta. HEART: No pericardial effusion. No significant coronary artery calcifications. PULMONARY ARTERIES: No obvious emboli visualized in the main pulmonary arteries or the segmental bran ches. HILAR AND MEDIASTINAL STRUCTURES: No identified masses or abnormal nodes. HARDWARE: None in the chest. UPPER ABDOMEN: No significant findings. Limited exam. THYROID AND OTHER SOFT TISSUES: No masses. No adenopathy. BONES: No acute or significant finding. 3D MIPS: Confirm above findings. OTHER: No other significant finding. IMPRESSION: Slightly limited study. No obvious pulmonary emboli. No aortic aneurysm. COMMENT: Quality ID # [id number]: Final reports with documentation of one or more dose reduction techniques (e.g., Automated exposure control, adjustment of the mA and/or kV according to patient size, use of iterative reconstruction technique) TECHNICAL DOCUMENTATION: JOB ID: [id number]- All Rights Reserved Reading location - IP/workstation name: [email or web address]
[2019-04-09] MEDS ORDERED: ESMOLOL HCL/SOD CL 2,500 MG/250 ML RTUINJ IV PRN ×2 (11:04→11:25)
[2019-04-09] MEDS ORDERED: ESMOLOL HCL INJ/PF 100 MG/10 ML SDV IV ONE ×2 (12:00→12:15)
[2019-04-09 12:16] LABS: CREATINE KINASE MB 1.59 ng/mL (<4.55); TROPONIN I 0.239 ng/mL
[2019-04-09] MEDS ORDERED: DIGOXIN INJ 0.5 MG/2 ML AMPULE IV ONE (13:26)
[2019-04-09] MEDS ORDERED: AMIODARONE HCL 150 MG in DEXTROSE 5%-WATER 100 ML IV ONE (14:35)
[2019-04-09] MEDS ORDERED: DEXTROSE 5%-WATER 500 ML with AMIODARONE HCL 900 MG IV PRN ×2 (14:45)
[2019-04-09] MEDS ORDERED: AMIODARONE HCL INJ 150 MG/3 ML VIAL IV ONE ×2 (15:11→15:12)
--- NOTE | 2019-04-09 15:51 | EKG REPORT ---
SEVERITY:- ABNORMAL ECG - A-FLUTTER W/ PREDOM 2:1 AV BLOCK, A-RATE 319 RIGHT BUNDLE BRANCH BLOCK : Confirmed by: Martha Alves MD 09-Apr-2019 15:50:10
--- NOTE | 2019-04-09 15:51 | EKG REPORT ---
SEVERITY:- ABNORMAL ECG - RIGHT BUNDLE BRANCH BLOCK ATRIAL fLUTTER : Confirmed by: Martha Alves MD 09-Apr-2019 15:50:05
[2019-04-09 19:14] VITALS: BP 159/93
[2019-04-09] MEDS ORDERED: TRAMADOL HCL 50 MG TABLET PO ONE (19:48)
== END 2019-04-09 20:01 | disposition short-term general hospital (02) ==
LOC: ER 07:23 → UNDOADMIN 13:23 → EH 13:23 → UNDODISIN 20:01
DX: I48.92 Unspecified atrial flutter (principal); E66.01 Morbid (severe) obesity due to excess calories; R79.89 Other specified abnormal findings of blood chemistry; R06.00 Dyspnea, unspecified; I10 Essential (primary) hypertension; R06.02 Shortness of breath; F41.9 Anxiety disorder, unspecified; R00.0 Tachycardia, unspecified; Z87.891 Personal history of nicotine dependence
CPT/HCPCS: 93005; 96376; 99291; 96361; 96375; 96365; 96366; 96367; 36415; 82553; 82550; 85025; 85610; 80053; 81001; 84484; 85379; 83880; 71045; 71275; 93010; J3490 ×4; J7060 ×2; J7030; J0282

== ENCOUNTER 2019-05-22 08:24 | Day surgery (SDC) | payer MEDICAID, OTHER ==
[~2019-05-22 08:24] MED LIST changes: -BUPIVACAINE HCL 0.25 % INJ/PF (2.5 MG/1 ML) 30 ML VIAL ONE; +DEXTROSE 5%-1/2 NORMAL SALINE 1,000 ML IV PRN; +DIPHENHYDRAMINE HCL 50 MG/ML VIAL IV PRN; +FENTANYL CITRATE INJ/PF 100 MCG/2 ML AMPUL IV PRN; -LACTATED RINGERS 1000 ML IV PRN; -LIDOCAINE 0.5% INJ-PF (5 MG/ML) 50 ML SDV ONE; -LIDOCAINE 0.5% INJ-PF (5 MG/ML) 50 ML SDV SUBCUT PRN; +MEPERIDINE HCL/PF INJ 25 MG/1 ML DISP.SYRIN IV PRN; +OXYCODONE-ACETAMINOPHEN 5-325 MG TABLET PO PRN; +PROMETHAZINE HCL INJ 25 MG/1 ML VIAL IV PRN
[2019-05-22] MEDS ORDERED: ALBUTEROL SULFATE 0.083% NEB 2.5 MG/3 ML AMPUL NEB ONE ×2 (08:39→10:16)
[2019-05-22] MEDS ORDERED: BUPIVACAINE HCL 0.25 % INJ/PF (2.5 MG/1 ML) 30 ML VIAL ONE (09:10)
[2019-05-22] MEDS ORDERED: BACITRACIN INJ 50,000 UNIT VIAL ONE (09:11)
[2019-05-22] MEDS ORDERED: LIDOCAINE 0.5% INJ-PF (5 MG/ML) 50 ML SDV ONE (09:11)
[2019-05-22 09:30] LABS: HEMATOCRIT 52.1 % (37.9-51.0); HEMOGLOBIN 17.4 g/dL (13.5-17.0); MEAN CORPUSCULAR HEMOGLOBIN 30.4 pg (27.0-33.4); MEAN CORPUSCULAR HGB CONC 33.4 g/dL (32.0-36.0); MEAN CORPUSCULAR VOLUME 91 fl (80-97); PLATELET COUNT 326 10^3/uL (150-450); RED BLOOD COUNT 5.71 10^6/uL (4.35-5.55); RED CELL DISTRIBUTION WIDTH 14.5 % (11.5-14.0); WHITE BLOOD COUNT 13.6 10^3/uL (4.0-10.5)
[2019-05-22 09:43] LABS: INTERNATIONAL RATION (INR) 0.99; PARTIAL THROMBOPLASTIN TIME 34.7 SEC (23.5-35.8); PROTHROMBIN TIME 13.1 SEC (11.4-15.4)
[2019-05-22 09:49] LABS: ANION GAP 7 (5-19); BLOOD UREA NITROGEN 19 mg/dL (7-20); CALCIUM 10.1 mg/dL (8.4-10.2); CARBON DIOXIDE 34 mmol/L (22-30); CHLORIDE 99 mmol/L (98-107); GLUCOSE 110 mg/dL (75-110); POTASSIUM 5.8 mmol/L (3.6-5.0)
[2019-05-22] MEDS ORDERED: PROPOFOL INJ 200 MG/20 ML VIAL IV ONE ×2 (09:59→11:22)
[2019-05-22] MEDS ORDERED: FENTANYL CITRATE INJ/PF 100 MCG/2 ML AMPUL ONE (09:59)
[2019-05-22] MEDS ORDERED: MIDAZOLAM 2 MG/2 ML INJ ONE (09:59)
[2019-05-22] MEDS ORDERED: LIDOCAINE 2% INJ (20 MG/ML) 20 ML MDV ONE (10:00)
[2019-05-22] MEDS ORDERED: DEXTROSE 50%-WATER 25 GM/50 ML DISP.SYRIN IV ONE (10:07)
[2019-05-22] MEDS ORDERED: INSULIN REG, HUMAN 100 UNIT/ML 3 ML VIAL (PYX) ONE (10:08)
--- NOTE | 2019-05-22 10:13 | RADIOLOGY REPORT (SQ) ---
EXAM DESCRIPTION: CHEST SINGLE VIEW COMPLETED DATE/TIME: 05/22/2019 9:13 am REASON FOR STUDY: PREOP COMPARISON: AP view of the chest from 04/09/2019. EXAM PARAMETERS: NUMBER OF VIEWS: One view. TECHNIQUE: Single frontal radiographic view of the chest acquired. RADIATION DOSE: NA LIMITATIONS: None. FINDINGS: LUNGS AND PLEURA: No consolidation, pleural effusion or pneumothorax. MEDIASTINUM AND HILAR STRUCTURES: Stable mediastinal and hilar contours. HEART AND VASCULAR STRUCTURES: The cardiac silhouette is enlarged but stable. The pulmonary vasculat ure is within normal limits. BONES: No acute findings. HARDWARE: None in the chest. OTHER: No other finding. IMPRESSION: Cardiomegaly without a superimposed acute cardiopulmonary process. TECHNICAL DOCUMENTATION: JOB ID: [id number] [employer]- All Rights Reserved Reading location - IP/workstation name: [email or web address]
--- NOTE | 2019-05-22 11:57 | Discharge Summary ---
Discharge Summary (SDC) - Discharge Final Diagnosis: #1 multiple subcutaneous masses, large. 2. Morbid obesity. 3. Hypertension. Date of Surgery: 05/22/19 Discharge Date: 05/22/19 Condition: Good Treatment or Instructions: Discharge home [after recovery per ASU criteria]. Diet ,as tolerated, when fully awake advance as tolerated. Activities within moderation encouraged. Follow up in my office by appointment in about [1 week]. Call for appointment. Leave wounds [covered], [keep clean and dry, until office visit in 1 week]. Hold of on school/work [until evaluation in office]. Meds per med rec. Percocet. May shower [in 48 hrs], [try to keep operated area as dry as possible]. Prescriptions: Oxycodone HCl/Acetaminophen [Percocet 5-325 mg Tablet] 1 tab PO ASDIR PRN #15 tab PRN Reason: Discharge Diet: As Tolerated Respiratory Treatments at Home: Deep Breathing/Coughing Discharge Activity: Activity As Tolerated
--- NOTE | 2019-05-22 12:02 | Operative Report ---
Operative Report DATE OF SURGERY: 05/22/19 PREOPERATIVE DIAGNOSIS: #1 multiple subcutaneous masses, large. 2. Morbid obe sity. 3. Hypertension. POSTOPERATIVE DIAGNOSIS: #1 multiple subcutaneous masses, large. 2. Morbid obesity. 3. Hypertension. OPERATION: Excision of of large inclusion cysts of both thighs. SURGEON: MAGDALENO VAZQUEZ DIESEL POWERPLANT MECHANIC: None. ANESTHESIA: LMAC TISSUE REMOVED OR ALTERED: Large inclusion cysts of both posterior medial upper thighs. On the left about 3 cm, the right about 6 cm across. Pockmarked scarring noted generally in this area. COMPLICATIONS: None. ESTIMATED BLOOD LOSS: 20 mL INTRAOPERATIVE FINDINGS: Of large inclusion cysts, about 6 cm across on the right, about 3 cm across on the left. Considerable subcutaneous scarring. Continuous pockmarks skin in the adjacent area suggestive of acneform eruption, chronic. PROCEDURE: PROCEDURE: The patient was positioned in the lithotomy and the affected areas were prepared with Betadine and draped out with sterile linen. After the"universal time-out", in which it was confirmed that the patient [did receive antibiotic], the procedure commenced. The patient was appropriately anesthetized. The lesions were sketched in marking ink, as well as the proposed incision. A d ilute solution of local anesthesia was generously infiltrated in the skin and subcutaneous tissues above and around the masses. Addressing the left side first, an incision was made vertically and in an oval fashion, in Larry's lines. This went through to the subcutaneous tissues. Dissection now proceeded in the subcutaneous tissue circumferentially around the mass and then finally posterior to it. In this way the entire mass was [removed and discarded]. Traction was held on the skin which was removed [using a Yulisa clamp]. The wound was irrigated with [saline] . Meticulous hemostasis was secured in the wound. This was done using [cautery and also interrupted sutures of 3-0 PDS]. [The wound was irrigated once more with sterile saline solution]. The wound was now closed using [a single layer of interrupted vertical mattress sutures. These were of 3-0 PDS]. Addressing the right side , an incision was made vertically and in an oval fashion, in Larry's lines. This went through to the subcutaneous tissues. Dissection now proceeded in the subcutaneous tissue circumferentially around the mass and then finally posterior to it. In this way the entire mass was [removed and discarded]. Traction was held on the skin which was removed [using a Yulisa clamp]. The wound was irrigated with [saline] . Meticulous hemostasis was secured in the wound. This was done using [cautery and also interrupted sutures of 3-0 PDS]. [The wound was irrigated once more with sterile saline solution]. The wound was now closed using [a single layer of interrupted vertical mattress sutures. These were of 3-0 PDS]. Sterile dressings applied and the procedure concluded.
[2019-05-22] MEDS ORDERED: OXYCODONE-ACETAMINOPHEN 5-325 MG TABLET ONE (12:50)
[2019-05-22 13:54] VITALS: BP 130/80
--- NOTE | 2019-05-22 20:52 | EKG REPORT ---
SEVERITY:- ABNORMAL ECG - SINUS RHYTHM IVCD, CONSIDER ATYPICAL RBBB : Confirmed by: Martha Alves MD 22-May-2019 20:52:14
== END 2019-05-22 13:45 | disposition home or self-care (01) ==
LOC: OROUT 08:24
PROVIDERS: ATTEND Surgery
DX: L72.0 Epidermal cyst (principal); I10 Essential (primary) hypertension; E66.01 Morbid (severe) obesity due to excess calories; F17.210 Nicotine dependence, cigarettes, uncomplicated; I48.91 Unspecified atrial fibrillation; Z79.01 Long term (current) use of anticoagulants; I45.10 Unspecified right bundle-branch block; Z68.44 Body mass index [BMI] 60.0-69.9, adult
CPT/HCPCS: 36415; 82962; 85027; 85610; 85730; 80048; 71045; 93005; 93010; 27337; J2250; J3490 ×4; J0690; J3010; J1815; S0020; J2704

== ENCOUNTER 2019-06-26 13:43 | Emergency (ER) | payer SELFPAY ==
[2019-06-26 13:54] VITALS: BP 140/60
--- NOTE | 2019-06-26 13:58 | ER Document Report ---
ED Medical Screen (RME) - General Chief Complaint: Rash Stated Complaint: RASH ON RIGHT ARM Time Seen by Provider: 06/26/19 13:53 Mode of Arrival: Wheelchair Information source: Patient Notes: 54-year-old male presented to ED for complaint of a rash to the right arm a small amount on the left arm for about a week and a half. He states now it is on his right wrist. He states he does not know what he is allergic to. He states the rash is keeping him awake. States he is in the wheelchair because he has severe chronic back pain. I have greeted and performed a rapid initial assessment of this patient. A comprehensive ED assessment and evaluation of the patient, analysis of test results and completion of medical decision making process will be conducted by an additional ED providers. TRAVEL OUTSIDE OF THE [place] IN LAST 30 DAYS: No - Related Data Allergies/Adverse Reactions: No Known Allergies Allergy (Verified 06/26/19 13:49) Past Medical History - Social History Chew tobacco use (# tins/day): No Frequency of alcohol use: None - Past Medical History Cardiac Medical History: Reports: Hx Hypertension Denies: Hx Coronary Artery Disease, Hx Heart Attack Pulmonary Medical History: Denies: Hx Asthma, Hx Bronchitis, Hx COPD, Hx Pneumonia Neurological Medical History: Denies: Hx Cerebrovascular Accident, Hx Seizures Renal/ Medical History: Denies: Hx Peritoneal Dialysis Musculoskeltal Medical History: Denies Hx Arthritis Past Surgical History: Reports: Hx Orthopedic Surgery - back - Immunizations Hx Diphtheria, Pertussis, Tetanus Vaccination: No
--- NOTE | 2019-06-26 14:09 | ER Document Report ---
HPI - HPI Time Seen by Provider: 06/26/19 13:53 Pain Level: 5 Notes: 54-year-old male presents the ED with complaints of a rash to his right forearm that started approximately 1 week ago. Has not tried any [id number] medications, worse with time, nothing makes better. Patient states he has been scratching at it, noticed a little rash on his left volar aspect of his forearm. Denies any new foods medications or travel. Denies fevers, chills, chest pain,palpitations, shortness of breath, dyspnea, nausea, vomiting, diarrhea, abdominal pain, hematuria,blurred vision, double vision, loss of vision, speech changes, LH, dizziness, syncope, headaches, wheezing, ST, URI, neck pain, weakness, bowel or bladder dysfunction, saddle anesthesia, numbness or tingling in bilateral upper or lower extremities equally, muscle paralysis, weakness in bilateral upper or lower extremities equally. Denies IV drug use. - REPRODUCTIVE Reproductive: DENIES: : Past Medical History - General Information source: Patient - Social History Smoking Status: Current Every Day Smoker Chew tobacco use (# tins/day): No Frequency of alcohol use: None Family History: Reviewed & Not Pertinent Patient has suicidal ideation: No Patient has homicidal ideation: No - Past Medical History Cardiac Medical History: Reports: Hx Hypertension Denies: Hx Coronary Artery Disease, Hx Heart Attack Pulmonary Medical History: Denies: Hx Asthma, Hx Bronchitis, Hx COPD, Hx Pneumonia Neurological Medical History: Denies: Hx Cerebrovascular Accident, Hx Seizures Renal/ Medical History: Denies: Hx Peritoneal Dialysis Musculoskeletal Medical History: Denies Hx Arthritis Past Surgical History: Reports: Hx Orthopedic Surgery - back - Immunizations Hx Diphtheria, Pertussis, Tetanus Vaccination: No Vertical Provider Document - CONSTITUTIONAL Agree With Documented VS: Yes Exam Limitations: No Limitations General Appearance: WD/WN Notes: PHYSICAL EXAMINATION:reviewed vital signs by RN GENERAL: Well-appearing, well-nourished and in no acute distress. HEAD: Atraumatic, normocephalic. EYES: Pupils equal round and reactive to light, extraocular movements intact, sclera anicteric, conjunctiva are normal. ENT: Nares patent, oropharynx clear without exudates. Moist mucous membranes. NECK: Normal range of motion, supple without lymphadenopathy LUNGS: Breath sounds clear to auscultation bilaterally and equal. No wheezes rales or rhonchi. HEART: Regular rate and rhythm without murmurs ABDOMEN: Soft, nontender, nondistended abdomen. No guarding, no rebound. No masses appreciated. Musculoskeletal: Normal range of motion, no pitting or edema. No cyanosis. NEUROLOGICAL: Cranial nerves grossly intact. Normal speech, normal gait. Normal sensory, motor exams PSYCH: Normal mood, normal affect. SKIN: Warm, Dry, normal turgor, no rashes or lesions noted. Noted macular papular rash to right dorsal aspect of forearm, convalescing with no demarcated lines, last dorsal aspect of forearm 0.6 x 0.6 cm of maculopapular rash. Both rashes without induration, warmth to touch, no satellite lesions, no linear patterns or burrowing noted. No open wounds. - INFECTION CONTROL TRAVEL OUTSIDE OF THE [place] IN LAST 30 DAYS: No Course - Re-evaluation Re-evalutation: 06/26/19 14:23 Afebrile, vitals stable no distress. Nurse's notes reviewed. Rashes pruritic, spreading with itching. Discussed with patient that he does need to scrub underneath his nails, likely patient was exposed to some form of poison oak or an oil of some sort that he was allergic to. Patient denies any fever or chills, nausea vomiting diarrhea, chest pain, shortness breath, neck pain, headache, lightheadedness, dizziness. Patient has a history of chronic back pain patient is not here for his back pain issue. rash is not consistent with acute urticaria, meningitis, [place] spotted fever, and clinical history does support this being an uncomplicated viral exanthem. No indication for further laboratories or imaging studies. At this time will discharge with return precautions and follow-up recommendations. Verbal discharge instructions given a the bedside and opportunity for questions given. Medication warnings reviewed. After performing a Medical Screening Examination, I estimate there is LOW risk for any life threatening rash. At this time the patient looks extremely well and there are no signs of systemic infection, however this may change at any time and the rash may change. I have reevaluated this patient multiple times and no significant life threatening changes are noted. The patient and I have discussed the diagnosis and risks, and we agree with discharging home with close follow-up with the understanding that symptoms and presentations can change. We also discussed returning to the Emergency Department immediately if new or worsening symptoms occur. We have discussed the symptoms which are most concerning (e.g., changing or worsening pain, fever, numbness, weakness, cool or painful digits) that necessitate immediate return. - Vital Signs Vital signs: Temp Pulse Resp BP Pulse Ox 97.8 F 99 20 140/60 H 91 L 06/26/19 13:48 06/26/19 13:48 06/26/19 13:48 06/26/19 13:48 06/26/19 13:48 Discharge - Discharge Clinical Impression: Contact dermatitis Condition: Stable Disposition: HOME, SELF-CARE Instructions: Contact Dermatitis (OM) Additional Instructions: Avoid irritants, use steroid ointment as directed. Take oral prednisone as directed, as well as take [id number] Benadryl 25 mg to 50 mg every 6 hours as needed. Do not scratch rash. Follow-up with primary care provider within the next 24 to 48 hours Return immediately for any new or worsening symptoms. Follow up with primary care provider, call tomorrow to make followup appointment. Prescriptions: Triamcinolone Acetonide [Aristocort 0.1% Ointment] 1 applic TP BID #80 gm Prednisone [Deltasone 20 mg Tablet] 3 tab PO DAILY 5 Days #15 tablet Forms: Return to Work Referrals: GONZALO HILLMAN MD [ACTIVE STAFF] - Follow up as needed
== END 2019-06-26 14:27 | disposition home or self-care (01) ==
LOC: ER 13:43
DX: L25.9 Unspecified contact dermatitis, unspecified cause (principal); R21 Rash and other nonspecific skin eruption; F17.200 Nicotine dependence, unspecified, uncomplicated; I10 Essential (primary) hypertension
CPT/HCPCS: 99282

== ENCOUNTER 2020-04-19 16:35 | Emergency (ER) | payer MEDICAID, MEDICARE, OTHER ==
--- NOTE | 2020-04-19 17:12 | ER Document Report ---
ED Medical Screen (RME) - General Chief Complaint: Cyst Stated Complaint: POSSIBLE CYST Time Seen by Provider: 04/19/20 17:09 Notes: HPI: 55-year-old obese male presenting for abscess to the chest wall for the last 2 days. No fever. States he has had a cystic structure there for years but it just became swollen and reddened recently PHYSICAL EXAMINATION: Large indurated region medial and inferior aspect of the right breast which is pendulous with surrounding erythema. I have greeted and performed a rapid initial assessment of this patient. A comprehensive ED assessment and evaluation of the patient, analysis of test results and completion of medical decision making process will be conducted by an additional ED providers. TRAVEL OUTSIDE OF THE [place] IN LAST 30 DAYS: No - Related Data Allergies/Adverse Reactions: No Known Allergies Allergy (Verified 06/26/19 13:49) Past Medical History - Past Medical History Cardiac Medical History: Reports: Hx Hypertension Denies: Hx Coronary Artery Disease, Hx Heart Attack Pulmonary Medical History: Denies: Hx Asthma, Hx Bronchitis, Hx COPD, Hx Pneumonia Neurological Medical History: Denies: Hx Cerebrovascular Accident, Hx Seizures Renal/ Medical History: Denies: Hx Peritoneal Dialysis Musculoskeltal Medical History: Denies Hx Arthritis Past Surgical History: Reports: Hx Orthopedic Surgery - back - Immunizations Hx Diphtheria, Pertussis, Tetanus Vaccination: No Physical Exam - Vital signs Vitals: Temp Pulse Resp BP Pulse Ox 98.5 F 94 22 H 148/66 H 94 04/19/20 16:48 04/19/20 16:48 04/19/20 16:48 04/19/20 16:48 04/19/20 16:48 Course - Vital Signs Vital signs: Temp Pulse Resp BP Pulse Ox 98.5 F 94 22 H 148/66 H 94 04/19/20 16:48 04/19/20 16:48 04/19/20 16:48 04/19/20 16:48 04/19/20 16:48
[2020-04-19] MEDS ORDERED: LIDOCAINE 1% INJ-PF (10 MG/ML) 30 ML SDV INJ ONE (19:07)
--- NOTE | 2020-04-19 19:09 | ER Document Report ---
ED Skin Rash/Insect Bite/Abscs - General Chief Complaint: Abscess Stated Complaint: POSSIBLE CYST Time Seen by Provider: 04/19/20 17:09 Primary Care Provider: MAGDALENO PULIDO MD [ACTIVE STAFF] - 04/21/20 Notes: Patient is a 55-year-old male who presents to the emergency department with a chief complaint of a cyst/abscess to his right medial breast at the 5 o'clock position. Patient states that he is always had a cyst there, but over the last 2 days, it has become more red and swollen. He brought this to the attention of his surgeon, but was told that it was too small to drain. Patient denies any fevers, body aches, or chills. States that the pain is only in that 1 area. TRAVEL OUTSIDE OF THE [place] IN LAST 30 DAYS: No - Related Data Allergies/Adverse Reactions: No Known Allergies Allergy (Verified 06/26/19 13:49) Home Medications: Buprenorphine Past Medical History - Social History Smoking Status: Current Every Day Smoker Frequency of alcohol use: None Drug Abuse: None Family History: Reviewed & Not Pertinent - Past Medical History Cardiac Medical History: Reports: Hx Hypertension Denies: Hx Coronary Artery Disease, Hx Heart Attack Pulmonary Medical History: Denies: Hx Asthma, Hx Bronchitis, Hx COPD, Hx Pneumonia Neurological Medical History: Denies: Hx Cerebrovascular Accident, Hx Seizures Renal/ Medical History: Denies: Hx Peritoneal Dialysis Musculoskeletal Medical History: Denies Hx Arthritis Past Surgical History: Reports: Hx Orthopedic Surgery - back - Immunizations Hx Diphtheria, Pertussis, Tetanus Vaccination: No Review of Systems - Review of Systems Notes: REVIEW OF SYSTEMS: CONSTITUTIONAL : Denies recent illness. Denies recent unintentional weight loss. Denies fever, chills, or sweats. EENT: Denies eye, ear, throat, or mouth pain, discharge, or symptoms. Denies nasal or sinus congestion. CARDIOVASCULAR: Denies chest pain. RESPIRATORY: Denies shortness of breath, cough, congestion, difficulty breathing, or wheezing. GASTROINTESTINAL: Denies nausea, vomiting, and diarrhea. Denies abdominal pain. Denies constipation. GENITOURINARY: Denies difficulty urinating, burning, blood in urine, urgency or frequency. MUSCULOSKELETAL: Denies neck and back pain. Denies joint pain or swelling. SKIN: See HPI. HEMATOLOGIC : Denies easy bruising or bleeding. LYMPHATIC: Denies swollen, painful, enlarged glands. NEUROLOGICAL: Denies no numbness or tingling denies weakness. Denies headache. Denies altered mental status. Denies alteration in speech. PSYCHIATRIC: Denies stress, anxiety, alteration in sleep patterns, or depression. All other systems reviewed and negative. Physical Exam - Vital signs Vitals: Temp Pulse Resp BP Pulse Ox 98.5 F 94 22 H 148/66 H 94 04/19/20 16:48 04/19/20 16:48 04/19/20 16:48 04/19/20 16:48 04/19/20 16:48 - Notes Notes: PHYSICAL EXAMINATION: GENERAL: Appears morbidly obese, no acute distress. HEAD: Normocephalic, atraumatic. EYES: PERRL, conjunctiva normal, all extraocular movements intact, sclera nonicteric ENT: Moist mucous membranes. NECK: Supple, no noticeable swelling, redness, rash. Normal range of motion. LUNGS: Equal breath sounds bilaterally and clear to auscultation. No wheezes rales or rhonchi. CARDIOVASCULAR: S1-S2, regular rate, regular rhythm. Radial pulses 2+, normal. ABDOMEN: Normoactive bowel sounds. Soft, nontender, no guarding, no rebound tenderness, and no masses palpated. EXTREMITIES: Normal strength and range of motion, no pitting or edema. No cyanosis. NEUROLOGICAL: Moves all extremities upon command. Strength 5/5 in all extremities. PSYCH: Normal mood, normal affect. SKIN: Warm, dry. Abscess noted to right breast at 5 o'clock position. Course - Re-evaluation Re-evalutation: 04/19/20 20:15 Differential diagnosis includes but normal limited to: abscess, dermoid cyst, sebaceous cyst, furnucle, or others. Based on patient's physical exam and history, this is an abscess. It was drained in the ER. There is some surrounding cellulitis. Based on patient's physical exam and these factors, they will be treated with antibiotics. Follow- up precautions were given. Verbal discharge instructions were given to the patient. They verbalized understanding. They are stable for discharge. - Vital Signs Vital signs: Temp Pulse Resp BP Pulse Ox 98.6 F 74 20 145/64 H 95 04/19/20 20:30 04/19/20 20:30 04/19/20 20:30 04/19/20 20:30 04/19/20 20:30 Procedures - Incision and Drainage Right mid breast Type: Simple Anesthetic type: 1% Lidocaine mL's of anesthetic: 10 Blade size: 11 I&D procedure: Betadine prep applied Incision Method: Incision made by scalpel Amount/type of drainage: 40 mL/purulent drainage blood Discharge - Discharge Clinical Impression: Abscess Condition: Stable Disposition: HOME, SELF-CARE Instructions: Post Incision and Drainage Additional Instructions: You were seen today in the emergency department for an abscess. The abscess was drained here in the emergency department. Packing was placed. Please keep the packing in and make an appointment for Tuesday with your primary care provider. Have them evaluate your abscess. You can also follow-up with Dr. Pulido if you are unable to get into your primary care provider. Take your an tibiotics as prescribed. If you develop a fever, have worsening symptoms, develop nausea or vomiting, please return to the emergency department. Prescriptions: Clindamycin HCl [Cleocin 150 mg Capsule] 300 mg PO Q6 7 Days #56 capsule Hydrocodone/Acetaminophen [[place] 5-325 mg Tablet] 1 tab PO Q6HP PRN #10 tablet PRN Reason: Referrals: MAGDALENO PULIDO MD [ACTIVE STAFF] - 04/21/20
[2020-04-19] MEDS ORDERED: CLINDAMYCIN HCL 150 MG CAPSULE PO ONE (20:15)
[2020-04-19] MEDS ORDERED: HYDROCODONE/ACETAMINOPHEN 5-325 MG (6 TAB/ER DISP) PO PRN (20:16)
[2020-04-19 20:31] VITALS: BP 145/64
== END 2020-04-19 20:32 | disposition home or self-care (01) ==
LOC: ER 16:35
DX: N61.1 Abscess of the breast and nipple (principal); F17.200 Nicotine dependence, unspecified, uncomplicated; I10 Essential (primary) hypertension; Z79.891 Long term (current) use of opiate analgesic
CPT/HCPCS: 10060; 99284; 87070; 87205; 87075; 87077; A9270 ×2; J3490